=== PATIENT | male | born 1975 | race Caucasian/White ===

== ENCOUNTER 2018-05-07 07:29 | Emergency (ER) | payer OTHER ==
[~2018-05-07] VITALS: Ht 175.3 cm; Wt 109.1 kg
[~2018-05-07 07:29] MED LIST: PRIL40 PO; PRINIVIL2.5 MG; ULTRAM 50MG TAB50 MG PO
[2018-05-07 07:33] VITALS: TEMP 98.5
[2018-05-07 08:29] LABS: HEMATOCRIT 50.2 % (42.0-52.0); HEMOGLOBIN 17.5 g/dl (13.5-18.0); MEAN CELL VOLUME 86 fl (80.0-100.0); MEAN CORPUSCULAR HEMOGLOBIN 30 pg (27.0-31.0); MEAN CORPUSCULAR HGB CONC 35 g/dl (33.0-37.0); MEAN PLATELET VOLUME 12.5 fl (7.4-10.4); PLATELET COUNT 212 K/mm3 (130-400); RED BLOOD COUNT 5.81 M/mm3 (4.20-5.60); REDCELL DISTRIBUTION WIDTH-CV 12.3 % (11.5-14.5)
[2018-05-07 08:45] LABS: ALBUMIN 5.1 gm/dL (3.5-5.0); BILIRUBIN,TOTAL 1.5 mg/dL (0.0-1.0); CALCIUM 10.4 mg/dL (8.4-10.2); CREATININE, serum 1.34 (0.66-1.25); TOTAL PROTEIN 9.4 gm/dL (6.4-8.2)
[2018-05-07 08:47] LABS: POTASSIUM 5.9 mmol/L (3.4-5.0)
[2018-05-07 08:54] LABS: BAND 36 % (0-10); LYMPHOCYTE 2 % (20.0-51.0); NEUTROPHILS 60 % (42.0-75.2); PLATELET ESTIMATE NORMAL (NORMAL)
[2018-05-07 09:57] LABS: COLLECTION METHOD CLEAN CATCH
[2018-05-07] MEDS ORDERED: PHENERGAN 25 TA25 MG PO (10:45)
[2018-05-07 10:55] LABS: MUCOUS Present /lpf; PH 5 (5-8); SQUAMOUS EPITHELIAL 0-2 /hpf; URINE APPEARANCE Clear; URINE BACTERIA Rare /hpf; URINE BILIRUBIN Negative (NEGATIVE); URINE BLOOD Negative (NEGATIVE); URINE COLOR Yellow; URINE GLUCOSE 1+ (NEGATIVE); URINE KETONE Trace (NEGATIVE); URINE LEUKOCYTE ESTERASE Negative (NEGATIVE); URINE NITRATE Negative (NEGATIVE); URINE PROTEIN(semi-quant) 1+ (NEGATIVE); URINE UROBILINOGEN Negative (NEGATIVE)
[2018-05-07 11:07] LABS: CALCIUM 8.6 mg/dL (8.4-10.2); POTASSIUM 4.8 mmol/L (3.4-5.0)
[2018-05-07 11:47] VITALS: BP 118/74; PULSE 106
[2018-05-08] MEDS ORDERED: VANCOCIN H125 MG/CAP PO (14:46)
== END 2018-05-07 11:44 | disposition home or self-care (01) ==
LOC: COL.ER 07:29
PROVIDERS: Emergency Medicine
DX: K63.5 Polyp of colon (principal); R11.10 Vomiting, unspecified; I10 Essential (primary) hypertension; Z90.49 Acquired absence of other specified parts of digestive tract
CPT/HCPCS: J0780; J1170; J1885; J2405; J7030; Q9967